=== PATIENT | male | born 1960 | race Hispanic/Latino ===

== ENCOUNTER → 2024-03-11 | Outpatient (CLI) | payer OTHER ==
[~2024-03-11] MED LIST: MECL-226 PO
--- NOTE | 2024-03-11 10:13 | HMCIMG ---
US SCROTUM & CONTENTS HISTORY: Hydrocele COMPARISON: None TECHNIQUE: Duplex scrotal ultrasound study was performed. FINDINGS: The right testes measures 4.9 x 2.3 x 3.1 cm. The left testes measures 2.6 x 2.6 x 3.7 cm. No evidence of intratesticular mass or abnormal calcification is seen. Normal flow is demonstrated in the testes and epididymides bilaterally. No hydroceles or varicocele is seen. Hypoechoic structure is seen. The left epididymis measuring 8.6 x 7.9 cm with differential diagnosis include hernia with fat content with other possibly not excluded. IMPRESSION: 1. No evidence of intratesticular mass is seen. 2. Normal flow is demonstrated of both testes. Suspicious for left inguinal hernia/left scrotal hernia with fat content.
== END | disposition home or self-care (01) ==
LOC: RAH 07:49
PROVIDERS: ATTEND Urology
DX: N43.2 Other hydrocele (principal); K46.9 Unspecified abdominal hernia without obstruction or gangrene
CPT/HCPCS: 76870

== ENCOUNTER → 2024-04-29 | Outpatient (CLI) | payer OTHER ==
--- NOTE | 2024-04-30 14:08 | HMCIMG ---
WHOLE BODY BONE SCAN History: Prostate carcinoma Comparison study: None Technique: A whole body bone scan was performed 3-4 hrs following intravenous injection of 24 mCi of 99m Tc-labeled MDP. Anterior and posterior images from the top of the head to the toes with exclusion of portions of the upper extremities, right and left lateral images of the head and neck were obtained. Findings: There is increased radiotracer tibia demonstrated within the bilateral superior and inferior pubic rami as well as the pubic symphysis. The remainder of the axial and appendicular skeleton appears unremarkable for findings worrisome for metastatic disease. 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
== END | disposition home or self-care (01) ==
LOC: RAH 12:30
PROVIDERS: ATTEND Urology
DX: C61 Malignant neoplasm of prostate (principal); R97.20 Elevated prostate specific antigen [PSA]
CPT/HCPCS: 78306; A9503

== ENCOUNTER → 2024-05-02 | Outpatient (CLI) | payer OTHER ==
[~2024-05-02] MED LIST changes: +IOHEXOL 350 MG/ML 100ML INFUS..BTL IV ONE
--- NOTE | 2024-05-02 08:59 | HMCIMG ---
CT CHEST/ABD/PELV W/WO CONTRAS HISTORY: Elevated PSA COMPARISON: None TECHNIQUE: Multiple sequential axial images of the chest were obtained from the thoracic inlet through upper abdomen. Patient was given 100 cc of Isovue through intravenous route. FINDINGS: Endplate compressions are seen at L3, L4 and L5 may be chronic in nature. Coronary arterial calcifications are seen. There is no evidence of pulmonary nodule or parenchymal disease. No pleural effusion or pericardial effusion is seen. There is no evidence of pneumothorax. There are normal size mediastinal and hilar lymph nodes. The heart is not enlarged. Degenerative changes of the thoracolumbar spine are present. There is no evidence of adrenal nodule. IMPRESSION: 1. No evidence of pulmonary nodule or effusion is seen. CT CHEST/ABD/PELV W/WO CONTRAS HISTORY: Elevated PSA COMPARISON: None TECHNIQUE: Multiple sequential axial images of the abdomen and pelvis were obtained from the dome of the diaphragm through symphysis pubis. Patient was not given contrast through intravenous route. Oral contrast was not given. FINDINGS: Gallbladder is distended. No bowel obstruction is seen. There is diverticulosis. The liver, spleen, adrenal glands and pancreas are unremarkable. There is no evidence of hydronephrosis bilaterally. No evidence of renal stone is seen. Fecal material is seen in the colon. There are normal size retroperitoneal and mesenteric lymph nodes. No ascites is seen. Atherosclerotic changes are present. There is large left scrotal hernia with fat content. There is small right scrotal hernia. No CT evidence of acute appendicitis is seen. Pelvic sidewalls are symmetric bilaterally. Bladder is well distended without wall thickening. IMPRESSION: 1. Bilateral inguinal/scrotal hernia with fat content within left more than right. Uterus has heterogeneous enhancement measuring 5.5 x [address] was performed with one or more following dose reduction techniques: automated exposure control, adjustment of the mA and kv according to patient's size, or use of a iterative reconstruction technique.
== END | disposition home or self-care (01) ==
LOC: RAH 07:29
PROVIDERS: ATTEND Urology
DX: C61 Malignant neoplasm of prostate (principal); R97.20 Elevated prostate specific antigen [PSA]; K57.90 Diverticulosis of intestine, part unspecified, without perforation or abscess without bleeding; K40.20 Bilateral inguinal hernia, without obstruction or gangrene, not specified as recurrent; K82.8 Other specified diseases of gallbladder; I25.10 Atherosclerotic heart disease of native coronary artery without angina pectoris; I70.90 Unspecified atherosclerosis; M47.815 Spondylosis without myelopathy or radiculopathy, thoracolumbar region
CPT/HCPCS: 71270; 74178; Q9967